=== PATIENT | male | born 2000 | race Caucasian/White ===

== ENCOUNTER 2021-06-03 20:34 | Emergency (ER) | payer BC, SELFPAY ==
[2021-06-03 20:39] VITALS: BP 147/79; PULSE 83; RESP 18; TEMP 36.4; O2SAT 97
--- NOTE | 2021-06-03 21:15 | DI.RAD_ITS ---
Exam(s) XR ANKLE LT COMPLETE EXAM: XR ANKLE LT COMPLETE CLINICAL HISTORY: internal rotational injury, lateral pain. TECHNIQUE: 2D digital imaging was performed. COMPARISON: No exams were available for comparison FINDINGS: No evidence of acute fracture or widening of the mortise. Talar dome unremarkable. No osseous tarsa l coalition. IMPRESSION: No significant findings. DATA REPOSITORY: RADIATION DOSE DELIVERED:
--- NOTE | 2021-06-03 21:18 | W.ED.GENAD ---
Discharge Plan Disposition Patient Disposition: HOME Condition: Good Discharge Details Clinical Impression: Ankle sprain Primary Care Provider: Selin Mckeon ED Provider: Yuliet Graves Home Meds and New Rx's Prescriptions: No Action No Known Home Meds 0RF Discharge Instructions Instructions: Ankle Sprain (ED) Additional Instructions: Imaging is reassuring here today. Likely ankle sprain. Please encourage rest, ice, elevation. Tylenol and ibuprofen as needed for discomfort. Please continue lace up ankle brace until pain is completely subsided. You may begin ankle strengthening exercises such as drawing the alphabet with your toe/foot to help strengthen your ankle and help prevent further damage in the future. I have asked her care management team to assist and ensure that you have follow-up care with local primary care. If you develop any new or worsening symptoms please seek care urgently once again. Discharge Data Discharge Date/Time-TO BE ENTERED AT DEPARTURE: 06/03/21 23:30 Medical Decision Making Patient pleasant 20-year-old gentleman presented with chief complaint of left ankle pain. He reports that prior to arrival he tripped and suffered an internal rotational injury and now has persistent pain over the lateral aspect of the ankle. He denies any injuries from the incident. Did not strike his head, and the left patient. On exam, patient appears nontoxic. Exam of the left lower extremity is without significant abnormality. No notable swelling. No pain over the fibular head or neck. Pain is in the inferior aspect of the fibula maximally just proximal to the lateral malleolus. Also has pain inferior to the lateral malleolus. 2+ distal pulses. Intact sensation. However, patient does report that he feels like he is tingly. No pain over the fifth metatarsal, no midfoot pain. No pain of the calcaneus. Achilles intact. No medial ankle pain. Able to move his toes without any difficulty. Patient declines any analgesics. Will obtain x-ray to evaluate for possible distal fibular fracture. FINDINGS: Bones/joints: There is no evidence of acute fracture.There is no evidence of malalignment or dislocation. Soft tissues: Normal. IMPRESSION: There is no evidence of acute fracture.There is no evidence of malalignment or dislocation. Discussed these findings with the patient. Advised likely sprain. Encourage rest, ice, elevation. Tylenol and ibuprofen as needed for discomfort. We will fit with a lace up ankle brace to help support ankle discomfort. Return precautions were discussed. Patient does not have a local primary care provider after care management to help assist in follow-up for reevaluation next 2 weeks he has any persistent pain in his ankle. All of his questions or concerns were addressed and he is in agreement this plan. HPI General Date/Time Provider Initiated Documentation: 06/03/21 21:18. History of Present Illness 20 year old M presents to the emergency department with the chief complaint of left ankle pain, with intensity rated at 6. Quality is described as aching, and is localized to the left and lower extremity. Patient reports no radiation. Patient started experiencing this minute(s) and it has been constant. improves with Immobilization improves symptom(s), Movement worsens symptoms . Patient notes no other symptoms.. Patient did receive the following treatments prior to arrival, none Related Data Home Medications Medication Instructions Recorded Confirmed Unknown [No Known Home Meds] 06/03/21 06/03/21 Allergies Allergy/AdvReac Type Severity Reaction Status Date / Time No Known Drug Allergies Allergy Unverified 06/03/21 20:40 General Stated Complaint: Orthopedic NEHEMIAH: 4 Review of Systems Constitutional Constitutional: Reports as per HPI, Denies fever(s), Denies headache(s) and Denies weakness ENT Ears, Nose, Mouth, and Throat: Denies headache(s) Respiratory Respiratory: Reports as per HPI and Denies cough Musculoskeletal Musculoskeletal: Reports as per HPI and Reports tingling Integumentary/Breasts Skin/Breast: Reports as per HPI, Denies rash and Denies wounds Neurologic Neurologic: Reports as per HPI, Denies headache(s), Reports tingling, Denies paresthesias and Denies weakness [facility] All Active Problems (Updated 06/03/21 @ 23:16 by JOSELITO Vigil) Ankle sprain (Acute) Social History Smoking/Tobacco Use Status: Never Smoking risk assessment performed?: Yes Alcohol Intake: current Alcohol Intake frequency: a few times a week Substance use type: does not use Do you feel safe at home: Yes Do you feel safe in your relationship?: Yes Exam Const General: cooperative, healthy appearing, comfortable, no acute distress, well developed and well groomed Nutritional Appearance: well nourished and obese Orientation: alert and awake Resp Effort & Inspection: normal respiratory effort, able to speak in complete sentences and no respiratory distress Cardio Rate: regular rate Rhythm: regular rhythm Skin General skin exam: no rashes or lesions noted Lesions: no lesions Rashes: no rashes Trauma: no lacerations or abrasions Neuro General: patient alert and patient awake Cognition: normal cognition Speech: speech normal Gait: antalgic Motor: muscle tone normal throughout Sensory Exam: no sensory deficits noted Extrem Ankle/foot/toe images: 1. Area of discomfort. Maximal just proximal to the lateral malleolus as well as inferior to it. no point tenderness directly over thee prominence. No significant swelling, discoloration, objective evidence of fracture. 2+ distal pulses. Sensation intact although he reportst some tingling. Nlo pain over the proximal fibula. No 5th metatarsal pain. no pain over rthe calcaneus. Achilles inttact. No pain overr the medial aspect or anteriorly. No pain in the foot. Psych Appearance: grossly normal and well kempt Mental Status: mental status grossly normal Speech and Movement: speech and movement normal Course Vital Signs Vital signs: Vital Signs Temperature 36.4 C L 06/03/21 20:39 Pulse 83 06/03/21 20:39 Respiratory Rate 18 06/03/21 20:39 Blood Pressure 147/79 H 06/03/21 20:39 Pulse Oximetry 97 06/03/21 20:39 Temperature 36.4 C L 06/03/21 20:39 Temperature Source Tympanic 06/03/21 20:39 Pulse 83 06/03/21 20:39 Respiratory Rate 18 06/03/21 20:39 Respiratory Effort Non-Labored 06/03/21 20:41 Blood Pressure 147/79 H 06/03/21 20:39 Pulse Oximetry 97 06/03/21 20:39 Pain Level 6 06/03/21 20:39
--- NOTE | 2021-06-03 23:05 | DI.VRAD_ITS ---
PROCEDURE INFORMATION: Exam: XR Left Ankle Exam date and time: 06/03/2021 9:24 PM Age: 20 years old Clinical indication: Other: Internal rotational injury, lateral pain TECHNIQUE: Imaging protocol: XR Left ankle. Views: 3 or more views. COMPARISON: MRI L LOWER JOINT WO CONT 04/29/2016 3:10 PM FINDINGS: Bones/joints: Normal. Soft tissues: Normal. IMPRESSION: No acute findings. Dictated and Authenticated by: Freddy Gonzalez MD. Ordering:PATRIC Horvath MD
--- NOTE | 2021-06-03 23:16 | NUR.NOTE ---
Nursing Note: PT INFO GIVEN TO CARE MANAGEMENT FOR PT TO ESTABLISH CARE AND BE SEEN FOR ANKLE SPRAIN IN THE NEXT TWO TO THREE WEEKS. RAE, ED
--- NOTE | 2021-06-04 12:52 | PDOC.ERCMACT ---
- If Service Date Differs Date of service: 06/04/21 Time of Service: 12:52 Care Management Activity Note Nic is seen in the ED for an ankle sprain. At the request of ED provider, CM coordinates a referral to JOSELITO Tucker, of [facility], on-call provider, to assist Nic in obtaining a follow up appointment and in establishing care with a local PCP.
== END 2021-06-03 23:30 | disposition home or self-care (01) ==
PROVIDERS: Emergency Provider Physician Assistant; PCP Pediatrics
DX: S93.492A Sprain of other ligament of left ankle, initial encounter (principal); W01.0XXA Fall on same level from slipping, tripping and stumbling without subsequent striking against object, initial encounter
CPT/HCPCS: 29515; 99283; 73610

== ENCOUNTER 2021-10-20 15:22 | Emergency (ER) | payer BC, SELFPAY ==
[2021-10-20 15:57] VITALS: BP 129/76; PULSE 94; RESP 18; TEMP 36; O2SAT 94
--- NOTE | 2021-10-20 16:22 | ED.GENADUL_ITS ---
Discharge Plan Disposition Patient Disposition: LEFT WITHOUT BEING SEEN Discharge Details Primary Care Provider: Selin Mckeon ED Provider: Soni Bowens Medical Decision Making 1622: No answer from WR 1731: Informed by research staff member that patient is now back in the waiting room he is refusing the chest x-ray at this time. 1746: NA from waiting room, assumed LWBS HPI General Date/Time Provider Initiated Documentation: 10/20/21 15:24 . Related Data Home Medications Medication Instructions Recorded Confirmed Unknown [No Known Home Meds] 06/03/21 06/03/21 Allergies Allergy/AdvReac Type Severity Reaction Status Date / Time No Known Drug Allergies Allergy Unverified 06/03/21 20:40 General Stated Complaint: OD/Poison NEHEMIAH: 4 PFSH Social History Smoking/Tobacco Use Status: Never Smoking risk assessment performed?: Yes Alcohol Intake: current Alcohol Intake frequency: a few times a week Substance use type: does not use Do you feel safe at home: Yes Do you feel safe in your relationship?: Yes Course Vital Signs Vital signs: Vital Signs Temperature 36 C L 10/20/21 15:57 Pulse 94 H 10/20/21 15:57 Respiratory Rate 18 10/20/21 15:57 Blood Pressure 129/76 10/20/21 15:57 Pulse Oximetry 94 10/20/21 15:57 Temperature 36 C L 10/20/21 15:57 Temperature Source Tympanic 10/20/21 15:57 Pulse 94 H 10/20/21 15:57 Respiratory Rate 18 10/20/21 15:57 Respiratory Effort 10/20/21 16:01 Blood Pressure 129/76 10/20/21 15:57 Blood Pressure Position Sitting 10/20/21 15:57 Pulse Oximetry 94 10/20/21 15:57 Oxygen Delivery Method Room Air 10/20/21 15:57 Oxygen Flow Rate 0 10/20/21 15:57 PAWSS Have you Been Recently Intoxicated or Drunk Within the Last 30 days?: Unable to Obtain Have you Ever Experienced Previous Episodes of Alcohol Withdrawal?: Unable to Obtain Have you ever Experienced Withdrawal Seizures?: Unable to Obtain Have you ever Experienced Delirium Tremens(DT)s?: Unable to Obtain Have you ever undergone Alcohol Rehabilitation Treatment (i.e, inpt ot outpatient treatment programs)?: Unable to Obtain Have you ever Experienced Blackouts?: Unable to Obtain Have you ever Combined Alcohol with other Downers within the last 90 days?: Unable to Obtain Have you ever Combined Alcohol with any other Substance of Abuse during the last 90 days?: No Positive Blood Alcohol level on Presentation? [PCS.BAL]: No Evidence of Increased Autonomic Activity (i.e. HR>120, tremor, sweating, agitation, nausea)?: No Result: 0
== END 2021-10-20 17:58 | disposition left before discharge ==
PROVIDERS: Emergency Provider Registered Nurse Emergency; PCP Pediatrics
DX: Z53.21 Procedure and treatment not carried out due to patient leaving prior to being seen by health care provider (principal)